=== PATIENT | female | born 1995 | race Caucasian/White ===

== ENCOUNTER 2022-04-22 18:15 | Emergency (ER) | payer MEDICAID, SELFPAY ==
[2022-04-22 18:59] VITALS: BP 123/84; PULSE 102; RESP 18; TEMP 35.7; O2SAT 99; BMI 35.8
--- NOTE | 2022-04-22 20:16 | ED.ABDPAIN ---
HPI - Abdominal Pain General Chief Complaint: Abdominal Pain Stated Complaint: Abdominal bruising from impact yesterday Time Seen by Provider: 04/22/22 18:34 History of Present Illness HPI narrative: 26-year-old woman presenting to the emergency department with right mid abdominal pain. She was helping her significant other work on a car yesterday, [place], and the bucket that she was standing on somehow slipped and she landed on the booth latch and has had pain since. Is a little short of breath at times. Hurts actually to sit and has a sense of fullness. Has not noticed any hematuria. Extremely tender. She will punch herself or anybody else who touches this area she says. She does not have pain in this right shoulder. She has had some right flank pain Related Data Allergies Allergy/AdvReac Type Severity Reaction Status Date / Time ceclor Allergy Uncoded 04/22/22 19:10 vioxcin Allergy Uncoded 04/22/22 19:10 Review of Systems Status of ROS Reports: 6 or more systems reviewed and unremarkable except as noted in History and below [facility] Social History Smoking Status: Smoker, status unknown Do you use any of these nicotine containing products: None Second hand tobacco smoke exposure: No How often do you have a drink containing alcohol: never How often do you have six or more drinks on one occasion: Never AUDIT-C Alcohol total score: 0 Non-prescribed substance use: denies use service: No Exam Narrative: Exam Narrative: Pleasant. NAD. Skin is warm and dry. She has evidence of old excoriation over our legs. Apparently had an allergy at prior work place There is 10 cm or so bruise in the right mid abdomen. No other evidence of trauma. She is transitioning without significant difficulty. Breathing easily. Moving all extremities without difficulty. Well perfused peripherally Abdomen with bruises noted above. Is quite tender to palpation in this area and regionally. Faint but present bowel sounds. Right flank is tender to percussion. Cardiovascular elevated rate regular rhythm Const: Vital Signs, click to edit/add: Vital Signs - 24 hr 04/22/22 18:59 Temperature 96.3 F L Pulse Rate [Apical ] 102 H Respiratory Rate 18 Blood Pressure [Ri ght Upper Arm] 123/84 Pulse Oximetry 99 Oxygen Delivery Me thod Room Air Documenting provider has reviewed patient's vital signs: yes Course Course Hospital Course: Interview and exam as above. She did not feel she needed anything for pain or nausea. Will place IV anticipating contrast. Vital Signs Vital signs: Initial Vital Signs Temperature 96.3 F L 04/22/22 18:59 Temperature Source Temporal Artery Scan 04/22/22 18:59 Pulse Rate 102 H 04/22/22 18:59 Pulse Rhythm 04/22/22 18:59 Respiratory Rate 18 04/22/22 18:59 Blood Pressure 123/84 04/22/22 18:59 Blood Pressure Mean 98 04/22/22 18:59 Blood Pressure Position Sitting 04/22/22 18:59 Pulse Oximetry 99 04/22/22 18:59 Oxygen Delivery Method 04/22/22 18:59 Vital Signs Temperature 96.3 F L 04/22/22 18:59 Pulse Rate 102 H 04/22/22 18:59 Respiratory Rate 18 04/22/22 18:59 Blood Pressure 123/84 04/22/22 18:59 Pulse Oximetry 99 04/22/22 18:59 Oxygen Delivery Method 04/22/22 18:59 Temperature 96.3 F L 04/22/22 18:59 Pulse Rate 84 04/22/22 23:26 Respiratory Rate 16 04/22/22 23:26 Blood Pressure 121/88 04/22/22 23:26 Pulse Oximetry 99 04/22/22 23:26 Oxygen Delivery Method 04/22/22 23:26 MDM - Abdominal Pain MDM Narrative Medical decision making narrative: Did consider ultrasound here though given duration of this injury and vital stability would anticipate CT scan regardless. IV will be started. Labs pending. Primary concern of intra-abdominal/visceral injury. Abdominal CT clear of any acute abnormality. Likely benign pulmonary nodule. Pericardial cyst was discussed. Labs normal Radiology report extracted Lower chest: Normal heart size. No pericardial effusion. Incidental 3.2 cm right anterior pericardial cyst. Small noncalcified pulmonary nodule in the right lung base on axial image 8 is likely benign. Medical Records Attestation: I reviewed the patient's medical records. Lab Data Attestation: I reviewed the patient's lab results. Labs: Lab Results 04/22/22 04/22/22 04/22/22 Range/Units 20:41 20:41 20:41 WBC 9.85 (4.50-11.00) K/uL RBC 4.90 (4.00-5.20) m/uL Hgb 15.2 (12.0-16.0) gm/dL Hct 45.1 (33.0-51.0) % MCV 92 (80-100) fL MCH 31 (26-34) pg MCHC 34 (32-36) gm/dL RDW Coeff of Cj 11.9 (11.5-15.5) % Plt Count 332 (140-440) K/uL Neut % (Auto) 67.4 (42.0-72.0) % Lymph % (Auto) 26.4 (20-44) % Levy % (Auto) 3.9 (0.0-11.0) % Eos % (Auto) 2.0 (0.0-7.0) % Baso % (Auto) 0.3 (0.0-3.0) % Neut # (Auto) 6.64 (1.7-7.0) K/uL Lymph # (Auto) 2.60 (0.90-2.90) K/uL Levy # (Auto) 0.40 (0.00-0.90) K/UL Eos # (Auto) 0.20 (0.00-0.50) K/uL Baso # (Auto) 0.03 (0.00-0.30) K/uL Abs Immat Gran (auto) 0.00 (0.00-0.30) K/uL INR 1.05 (0.91-1.10) APTT 31 (23-33) Seconds Sodium 140 (135-149) mmol/L Potassium 3.9 (3.6-5.1) mmol/L Chloride 102 (96-114) mmol/L Carbon Dioxide 27 (20-32) mmol/L BUN 16 (5-24) mg/dL Creatinine 0.9 (0.5-1.5) mg/dL Estimated Creat Clear 85.98 Estimated GFR 91 ml/min Glucose 93 (60-115) mg/dL Calcium 9.5 (8.4-10.6) mg/dL Total Bilirubin 0.8 (0.1-1.5) mg/dL AST 27 (12-35) U/L ALT 25 (4-35) U/L Alkaline Phosphatase 71 (40-150) U/L Total Protein 8.2 (6.0-8.3) g/dL Albumin 4.6 (3.3-5.0) g/dL HCG, Qual (Negative) Urine Color (Yellow) Urine Appearance (Clear) Urine pH (5.0-8.5) Ur Specific [place] (1.000-1.030) Urine Protein (Negative) Urine Glucose (UA) (Negative) Urine Ketones (Negative) Urine Blood (Negative) Urine Nitrite (Negative) Urine Bilirubin (Negative) Urine Urobilinogen (0.2-1.0) Ur Leukocyte Esterase (Negative) 04/22/22 04/22/22 Range/Units 22:26 Unknown WBC (4.50-11.00) K/uL RBC (4.00-5.20) m/uL Hgb (12.0-16.0) gm/dL Hct (33.0-51.0) % MCV (80-100) fL MCH (26-34) pg MCHC (32-36) gm/dL RDW Coeff of Cj (11.5-15.5) % Plt Count (140-440) K/uL Neut % (Auto) (42.0-72.0) % Lymph % (Auto) (20-44) % Levy % (Auto) (0.0-11.0) % Eos % (Auto) (0.0-7.0) % Baso % (Auto) (0.0-3.0) % Neut # (Auto) (1.7-7.0) K/uL Lymph # (Auto) (0.90-2.90) K/uL Levy # (Auto) (0.00-0.90) K/UL Eos # (Auto) (0.00-0.50) K/uL Baso # (Auto) (0.00-0.30) K/uL Abs Immat Gran (auto) (0.00-0.30) K/uL INR (0.91-1.10) APTT (23-33) Seconds Sodium (135-149) mmol/L Potassium (3.6-5.1) mmol/L Chloride (96-114) mmol/L Carbon Dioxide (20-32) mmol/L BUN (5-24) mg/dL Creatinine (0.5-1.5) mg/dL Estimated Creat Clear Estimated GFR ml/min Glucose (60-115) mg/dL Calcium (8.4-10.6) mg/dL Total Bilirubin (0.1-1.5) mg/dL AST (12-35) U/L ALT (4-35) U/L Alkaline Phosphatase (40-150) U/L Total Protein (6.0-8.3) g/dL Albumin (3.3-5.0) g/dL HCG, Qual Negative (Negative) Urine Color Yellow (Yellow) Urine Appearance Clear (Clear) Urine pH 5.5 (5.0-8.5) Ur Specific [place] 1.020 (1.000-1.030) Urine Protein Negative (Negative) Urine Glucose (UA) Negative (Negative) Urine Ketones Negative (Negative) Urine Blood Negative (Negative) Urine Nitrite Negative (Negative) Urine Bilirubin Negative (Negative) Urine Urobilinogen 0.2 (0.2-1.0) Ur Leukocyte Esterase Negative (Negative) Discharge Plan Discharge Clinical Impression: Abdominal contusion, Pericardial cyst Patient Disposition: Home, Self-Care Condition: Stable Additional Instructions: Apply cold packs to this area a few times daily over the next couple of days. Can then transition to warm moist packs for a few more days. Return for marked increase in/uncontrolled pain, repeated vomiting. Follow Up/Referrals: Virgen Emmanuel MD [Primary Care Provider] - Stand Alone Forms: [employer] Info Instructions
--- NOTE | 2022-04-22 20:25 | CRLHL7_ITS ---
For Patients: As a result of the Century Cures Act, medical imaging exams and procedure reports are released immediately into your electronic medical record. You may view this report before your referring provider. If you have questions, please contact your health care provider. INDICATION: Right-sided pain. TECHNIQUE: CT abdomen and pelvis acquired with 100 mL Isovue 370 IV contrast. COMPARISON: None. FINDINGS: Lower chest: Normal heart size. No pericardial effusion. Incidental 3.2 cm right anterior pericardial cyst. Small noncalcified pulmonary nodule in the right lung base on axial image 8 is likely benign. Liver: Normal size and attenuation. Spleen: Normal size. Incidental splenule. Pancreas: No acute inflammatory changes. Gallbladder and bile ducts: No calcified stones are seen within the gallbladder. No significant bile duct dilatation. Kidneys: Normal size. No mass. No hydronephrosis. Adrenal glands: No mass. No hemorrhage. GI tract: No abnormally dilated bowel. Appendix is normal. Vascular structures: Normal caliber abdominal aorta. Lymph nodes: No pathologically enlarged lymph nodes are identified. Miscellaneous: No free air. No free fluid. Pelvic Organs: Unremarkable appearance of the uterus and ovaries. No bladder wall thickening or mass. Bones: No acute abnormality. IMPRESSION: No CT evidence of an acute abnormality within the abdomen or pelvis. Please note that all CT scans at this facility use dose modulation, iterative reconstruction, and/or weight-based dosing when appropriate to reduce radiation dose to as low as reasonably achievable. Dictated by Gilberto Figueroa MD @ 04/22/2022 11:06:07 PM (Electronically Signed)
[2022-04-22] MEDS: 0.9 % SODIUM CHLORIDE 1000 ml 1,000 ML IV (20:47)
[2022-04-22 20:54] LABS: Basophils Absolute Auto 0.03 K/uL (0.00-0.30); Basophils Percent Auto 0.3 % (0.0-3.0); Hematocrit 45.1 % (33.0-51.0); Hemoglobin* 15.2 gm/dL (12.0-16.0); Lymphocytes Percent Auto 26.4 % (20-44); Mean Corpuscular HGB Conc 34 gm/dL (32-36); Mean Corpuscular Hemoglobin 31 pg (26-34); Mean Corpuscular Volume 92 fL (80-100); Monocytes Percent Auto 3.9 % (0.0-11.0); Neutrophils Absolute Auto 6.64 K/uL (1.7-7.0); Neutrophils Percent Auto 67.4 % (42.0-72.0); Platelet Count* 332 K/uL (140-440); RDW Coefficient of Variation % 11.9 % (11.5-15.5); White Blood Count* 9.85 K/uL (4.50-11.00)
[2022-04-22 20:56] LABS: Albumin* 4.6 g/dL (3.3-5.0); Chloride* 102 mmol/L (96-114); Slide Review Reflex No; Sodium* 140 mmol/L (135-149)
[2022-04-22 20:57] LABS: Potassium* 3.9 mmol/L (3.6-5.1)
[2022-04-22 20:59] LABS: Alkaline Phosphatase* 71 U/L (40-150); Aspartate Amino Transferase* 27 U/L (12-35); Bilirubin Total* 0.8 mg/dL (0.1-1.5); Blood Urea Nitrogen* 16 mg/dL (5-24); Carbon Dioxide* 27 mmol/L (20-32); Creatinine* 0.9 mg/dL (0.5-1.5); Est. Creatinine Clearance* 85.98; Estimated Glomerular Filt Rate 91 ml/min; Total Protein* 8.2 g/dL (6.0-8.3)
[2022-04-22 21:00] LABS: Alanine Aminotransferase* 25 U/L (4-35); Calcium* 9.5 mg/dL (8.4-10.6); Glucose* 93 mg/dL (60-115); INR 1.05 (0.91-1.10); Partial Thromboplastin Time* 31 Seconds (23-33); Prothrombin Time 14.2 Seconds
[2022-04-22 22:08] LABS: HCG Qualitative Serum* Negative (Negative)
[2022-04-22 22:36] LABS: Appearance Urine Clear (Clear); Bilirubin Urine Negative (Negative); Blood Urine Negative (Negative); Color Urine Yellow (Yellow); Glucose Urine Negative (Negative); Ketones Urine Negative (Negative); Leukocyte Esterase Urine Negative (Negative); Nitrite Urine Negative (Negative); Protein Urine Negative (Negative); Urobilinogen Urine 0.2 (0.2-1.0); pH Urine 5.5 (5.0-8.5)
[2022-04-22 23:26] VITALS: BP 121/88; PULSE 84; RESP 16; O2SAT 99
== END 2022-04-22 23:30 | disposition home or self-care (01) ==
PROVIDERS: Emergency Provider Family Medicine; PCP Family Medicine
DX: S30.1XXA Contusion of abdominal wall, initial encounter (principal); I31.8 Other specified diseases of pericardium
CPT/HCPCS: 36415; 74177; 80053; 81003; 84703; 85025; 85610; 85730; 96360; 99283; 99284; J7030; Q9967